=== PATIENT | male | born 1985 ===

== ENCOUNTER → 2023-05-04 | Outpatient (CLI) | payer MEDICARE, OTHER ==
[~2023-05-04] MED LIST: ALBU90OI INH; ERGO50000 PO; NUVIGIL200 MG PO
== END ==
LOC: LAB SHORT 17:55 → LAB 17:55
DX: L02.414 Cutaneous abscess of left upper limb (principal)
CPT/HCPCS: 87070; 87077; 87147; 87186; 87205

== ENCOUNTER → 2024-01-12 | Outpatient (CLI) | payer MEDICARE, OTHER ==
[~2024-01-12] MED LIST changes: +METPHE10 PO
[2024-01-12 11:04] LABS: Percent Saturation 27.6 % (20.0-50.0); Prolactin 19.5 ng/mL (2.5-17.4)
[2024-01-12 11:12] LABS: Total Testosterone, Adult Male 289 ng/dL (175-781)
[2024-01-12 11:32] LABS: Vitamin D, 25-Hydroxy 29 ng/mL (32-80)
== END ==
LOC: LAB SHORT 09:02 → LAB 09:02
PROVIDERS: Nurse Practitioner Family
DX: E29.1 Testicular hypofunction (principal); E55.9 Vitamin D deficiency, unspecified
CPT/HCPCS: 36415; 82306; 82533; 82728; 83540; 83550; 84146; 84403; 84439

== ENCOUNTER → 2024-08-20 | Outpatient (CLI) | payer MEDICARE | LOC: LAB SHORT 12:28 → LAB 12:28 | DX: L02.211 Cutaneous abscess of abdominal wall (principal) | CPT/HCPCS: 87070; 87077; 87147; 87186; 87205 ==